=== PATIENT | female | born 1945 ===

== ENCOUNTER → 2020-10-22 | Day surgery (SDC) | payer OTHER ==
[~2020-10-22] MED LIST: ADULT LOW DOSE81 M1 PO; ALONDRONATE PO; CHILDREN'S ASPI81 MG PO; COZAAR50 MG PO; HUMULIN 70100 UNIT/2 SUBCUTANEO; LEVOTHYROXINE25 MCG PO; METFORMIN HCL1000 M2 PO; TOPROL XL25 M1 PO; [UNRECOGNIZED DRUG - OTHER] PO
== END | disposition home or self-care (01) ==
LOC: ADM 10-15 12:00 → CIR.AMB 09:45
PROVIDERS: ATTEND Colon & Rectal Surgery
DX: D12.9 Benign neoplasm of anus and anal canal (principal); D12.8 Benign neoplasm of rectum; K64.2 Third degree hemorrhoids; Z53.09 Procedure and treatment not carried out because of other contraindication; M25.512 Pain in left shoulder; Z20.822 Contact with and (suspected) exposure to COVID-19

== ENCOUNTER 2020-11-12 06:25 | Day surgery (SDC) | payer OTHER | END 2020-11-12 16:15 | disposition home or self-care (01) | LOC: CIR.AMB 06:25 | PROVIDERS: ATTEND Colon & Rectal Surgery | DX: C21.1 Malignant neoplasm of anal canal (principal); D12.9 Benign neoplasm of anus and anal canal; K64.2 Third degree hemorrhoids; Z20.822 Contact with and (suspected) exposure to COVID-19 ==